=== PATIENT | female | born 1990 | race Two or more races ===

== ENCOUNTER 2024-03-10 14:29 | Outpatient (CLI) | payer OTHER | END 2024-03-10 14:43 | disposition home or self-care (01) | LOC: RAD 14:29 | PROVIDERS: ATTEND Physical Medicine & Rehabilitation | DX: S93.402A Sprain of unspecified ligament of left ankle, initial encounter (principal); W19.XXXA Unspecified fall, initial encounter ==

== ENCOUNTER 2024-04-14 11:21 | Outpatient (CLI) | payer OTHER | END 2024-04-14 11:40 | disposition home or self-care (01) | LOC: RAD 11:21 | PROVIDERS: ATTEND Physical Medicine & Rehabilitation | DX: M79.672 Pain in left foot (principal); S96.911A Strain of unspecified muscle and tendon at ankle and foot level, right foot, initial encounter ==